=== PATIENT | male | born 1960 | race Caucasian/White ===

== ENCOUNTER → 2018-02-26 | Outpatient (CLI) | payer OTHER ==
--- NOTE | 2018-02-26 12:20 | Diagnostic Imaging Report ---
PROCEDURE:LIMITED ABDOMINAL ULTRASOUND COMPARISON:None. INDICATIONS:Abdominal Pain Acute - LUQ FINDINGS: Focused sonographic evaluation of the left upper quadrant was performed in the transverse and sagittal planes. Left kidney: 10.3 x 4.8 x 4.8 cm. No solid or cystic mass, echogenic calculi, or hydronephrosis. Normal parenchymal echogenicity. Spleen: 10.9 x 5.6 x 6.1 cm. Volume 195.8. Echogenic non-circumscribed region in the spleen may represent remote trauma. Pancreas: The visualized portions of the pancreas are normal. Inferior vena cava: Normal. Aorta: Normal. Ascites: None. CONCLUSION: No acute sonographic abnormality. Dictated by: Arturo Marley M.D. on 02/26/2018 at 12:21 Electronically approved by: Arturo Marley M.D. on 02/26/2018 at 12:21
== END ==
LOC: US 10:54
PROVIDERS: ATTEND Family Medicine
DX: R10.12 Left upper quadrant pain (principal)
CPT/HCPCS: 76705

== ENCOUNTER → 2018-03-15 | Outpatient (CLI) | payer OTHER ==
[~2018-03-15] MED LIST: IOPAMIDOL 370 MG/ML 200 ML INFUS..BTL INJ ONE; SODIUM CHLORIDE 0.9% 50ML 50 ML ONE
[2018-03-15 18:17] LABS: BLOOD UREA NITROGEN 13 mg/dL (7-26); BUN/CREATININE RATIO 12 (6-25); CREATININE, SERUM 1.06 mg/dL (0.72-1.25); EST GLOMERULAR FILTRATION RATE > 60 ML/MIN (60-)
--- NOTE | 2018-03-15 18:55 | Diagnostic Imaging Report ---
PROCEDURE: CT ABDOMEN WITH CONTRAST TECHNIQUE: The abdomen was scanned utilizing a multidetector helical scanner from the diaphragm to the iliac crest after the IV administration of 100cc of Isovue 370 and the oral administration of water. Coronal and sagittal multiplanar reformations were obtained. DLP: 277.94 mGy-cm COMPARISON: Abdominal ultrasound dated 02/26/2018 INDICATIONS: LEFT UPPER QUADRANT PAIN FINDINGS: LOWER THORAX: Left lower lobe calcified granuloma. HEPATOBILIARY: No focal hepatic lesions. No biliary ductal dilatation. Gallbladder is contracted, limiting evaluation. No wall thickening. SPLEEN: No splenomegaly. PANCREAS: No focal masses or ductal dilatation. ADRENALS: No adrenal nodules. KIDNEYS: No hydronephrosis, stones, or solid mass lesions. 3.6 cm right superior pole cyst. 1.5 cm medial left mid pole cyst. Anterior left midpole hypodensity is too small to characterize PERITONEUM / RETROPERITONEUM: No free air or fluid. LYMPH NODES: No lymphadenopathy. VESSELS: Unremarkable. GI TRACT: Visualized portions of the bowel demonstrate no distention or wall thickening. BONES AND SOFT TISSUES: Subacute fracture of the lateral left ninth rib, best seen on sagittal image 116. IMPRESSION: No acute inflammatory process in the abdomen. Bilateral renal cysts. Subacute or mild chronic fracture deformity of the lateral left ninth rib. Dictated by: Marcio Mtz M.D. on 03/15/2018 at 18:57 Electronically approved by: Marcio Mtz M.D. on 03/15/2018 at 18:57
== END ==
LOC: CT 17:35
PROVIDERS: ATTEND Family Medicine
DX: R10.12 Left upper quadrant pain (principal)
CPT/HCPCS: 36415; 74160; 82565; 84520; Q9967